=== PATIENT | male | born 1970 | race African-American/Black ===

== ENCOUNTER 2023-05-16 10:05 | Emergency (ER) | payer SELFPAY ==
[~2023-05-16] VITALS: Ht 182.9 cm; Wt 86.0 kg
[2023-05-16] MEDS ORDERED: MANNITOL 12.5G (25%) VIAL 50ML IV ONE (11:00)
[2023-05-16] MEDS ORDERED: DEXAMETHASONE 10 MG/ML VIAL IV ONE (11:00)
[2023-05-16] MEDS ORDERED: LEVETIRACETAM 500MG PREMIX 100 ML IV ONE (11:00)
[2023-05-16] MEDS ORDERED: NICARDIPINE 40MG/200ML PREMIX 200 ML IV STA (11:13)
[2023-05-16] MEDS ORDERED: PROPOFOL 10MG/ML 100ML 100 ML IV PRN ×2 (11:15)
[2023-05-16] MEDS ORDERED: PROPOFOL 10MG/ML 100ML 100 ML IV SCH (11:15)
[2023-05-16 11:18] LABS: BASOPHILS % 0.5 % (0.0-2.0); DIFFERENTIAL COMMENT 0; EOSINOPHILS % 2.3 % (0.0-5.0); HEMATOCRIT. 47.7 % (42.0-52.0); LYMPHOCYTES % 44.9 % (20.0-50.0); MEAN CORPUSCULAR HEMOGLOBIN 25.1 pg (28.0-32.0); MEAN CORPUSCULAR HGB CONC 33.5 g/dL (31.0-37.0); MEAN PLATELET VOLUME 7.6 fl (7.4-10.4); MONOCYTES % 9.1 % (2.0-8.0); NEUTROPHILS % 43.2 % (40.0-76.0); PLATELET 316 x1000/uL (130-400); RED BLOOD CELL COUNT 6.36 mill/uL (4.7-6.1); RED CELL DISTRIBUTION WIDTH 14.9 % (11.6-14.6); WHITE BLOOD COUNT 10.8 x1000/uL (4.5-11.0)
[2023-05-16 11:20] VITALS: PULSE 117; RESP 24
[2023-05-16 11:30] LABS: CHLORIDE 103 mEq/L (98-107); INDEX HEMOLYSI 1 (1-3); INDEX ICTERIC 1 (1-4); INDEX LIPEMIC 1 (1-3); SODIUM 136 mEq/L (136-145)
[2023-05-16] MEDS ORDERED: FENTANYL 2500MCG/250ML PMX 250 ML IV ONE (11:45)
[2023-05-16] MEDS ORDERED: LABETALOL HCL VIAL 20 MG/4 ML VIAL IV ONE (11:45)
[2023-05-16 11:46] LABS: ALANINE AMINOTRANSFERASE 39 IU/L (13-61); ALBUMIN 3.7 g/dL (3.4-5.0); ASPARTATE AMINOTRANSFERASE 21 IU/L (15-37); BILIRUBIN TOTAL 0.4 mg/dL (0.1-1.0); CALCIUM 8.6 mg/dL (8.5-10.1); CARBON DIOXIDE 26 mEq/L (21-32); CREATININE 1.1 mg/dL (0.6-1.3); ETHANOL BLOOD < 10 mg/dL (<10); GLUCOSE 213 mg/dL (70-105); PROTEIN TOTAL 9.2 g/dL (6.0-8.3); TROPONIN I HIGH SENSITIVITY 10 ng/L (<78); UREA NITROGEN BLOOD 12 mg/dL (7-21)
[2023-05-16 11:51] LABS: POTASSIUM 2.5 mEq/L (3.5-5.1)
[2023-05-16 11:59] VITALS: O2SAT 99
[2023-05-16 12:00] VITALS: BP 108/72; PULSE 136; RESP 24; TEMP 98.3
[2023-05-16] MEDS ORDERED: FENTANYL CITRATE 2,500 MCG in SODIUM CHLORIDE 0.9% 200 ML IV PRN (12:00)
[2023-05-16] MEDS ORDERED: MANNITOL 20% 62.5 ML IV NR (12:00)
[2023-05-16] MEDS ORDERED: LABETALOL 5MG/ML SYR 20 MG/4 ML SYRINGE IV NR (12:00)
== END 2023-05-16 12:00 | disposition short-term general hospital (02) ==
LOC: ER 10:05
DX: I61.5 Nontraumatic intracerebral hemorrhage, intraventricular (principal); J45.909 Unspecified asthma, uncomplicated
CPT/HCPCS: 80053; 80320; 82962; 84443; 85025; 84484; 36415; 71045; 70450; 31500; 93005; 96367; 96365; 96375; 99291; Z7610 ×9; J1953; J1100; J2704; 94002; J2150; J3010; J3490; A4315; G0480